=== PATIENT | male | born 1965 | race Caucasian/White ===

== ENCOUNTER 2016-12-08 08:03 | Inpatient (IN) ==
--- NOTE | 2016-12-05 14:47 | EKG Report ---
Stationary ECG Study [facility] Test Date: 12/05/2016 2:46:50 PM Pat Name: ELODIA RIVERA Department: Room: Gender: M Light Industrial Supervisor: RICHARD [birth year] : 1965 Requested by: Marcelo Davis Order Number: [id number] Reading MD: JOSE R CASILLAS Intervals [place] Rate: 66 P: 70 [place]: 181 QRS: 55 QRSD: 85 T: 1 QT: 379 QTc: 393 Interpretive Statements SINUS RHYTHM Electronically Signed On 12-05-16 19:42:28 BIRD KEEPER by JOSE R CASILLAS [email or web address]
--- NOTE | 2016-12-05 14:48 | XRay Report ---
XR chest 2V Indication: Respiratory preoperative evaluation Comparison: None available Findings: The heart and mediastinum are normal in size and configuration. The pulmonary vascularity is normal in caliber. No lung infiltrates, effusions, pneumothorax or other abnormality is demonstrated. Impression: Normal chest x-ray PROCEDURE INTERPRETED AT [facility] DEPARTMENT OF RADIOLOGY Final Report Signed by: Dr. Tony Meraz
[2016-12-05 15:29] LABS: Basophils % 0.5 % (0.0-0.8); Eosinophils # 0.3 10*3/uL (0.0-0.87); Eosinophils % 4.7 % (0.00-10.9); Hematocrit 43.6 VOL% (42.0-52.0); Hemoglobin 14.4 GM/DL (14.0-18.0); Immature Granulocytes % 0.2 %; Immature Granulocytes Absolute 0.01 #; Lymphocytes # 2.8 10*3/uL (1.4-4.0); Lymphocytes % 44.4 % (21.2-54.2); Mean Corpuscular Hemoglobin 29 PG (27-34); Mean Corpuscular Volume 87.7 FL (87-102); Mean Platelet Volume 9.5 FL (9.6-12.0); Monocytes # 0.5 10*3/uL (0.11-0.8); Monocytes % 8.3 % (1.7-12.7); Neutrophils # 2.7 10*3/uL (1.4-7.4); Neutrophils % 41.9 % (38.7-73.9); Platelet Count 253 T/CUMM (130-400); Red Blood Count 4.97 MC/CUMM (3.8-5.5); Red Cell Distribution Width 13.9 % (9.3-17.3); White Blood Count 6.4 T/CUMM (4-12)
[2016-12-05 16:06] LABS: Calcium 9.2 MG/DL (8.5-10.1); Osmolality,Calculated 285.8 MOS/KG (273-304); Potassium 4.4 MMOL/L (3.5-5.1)
[~2016-12-08 08:03] MED LIST: FAMOTIDINE 20 MG TABLET PO ONE; LORazepam 1 MG TABLET PO ONE
[2016-12-08] MEDS ORDERED: ROPIVACAINE 0.5% 30 ML VIAL ONE (08:32)
[2016-12-08] MEDS ORDERED: ceFAZolin 1,000 MG VIAL ONE (09:33)
[2016-12-08] MEDS ORDERED: LORazepam 1 MG TABLET ONE (09:33)
[2016-12-08] MEDS ORDERED: FAMOTIDINE 20 MG TABLET ONE (09:33)
[2016-12-08] MEDS ORDERED: SODIUM CHLORIDE 0.9% 100 ML IV ONE (09:34)
[2016-12-08] MEDS: LACTATED RINGERS 1,000 ML IV SCH ×3 (09:44→20:27)
[2016-12-08] MEDS ORDERED: BACITRACIN OINT 0.9 GM PACK TOP ONE (09:52)
[2016-12-08] MEDS ORDERED: BUPIVACAINE 0.5% 50 ML VIAL ONE (09:52)
[2016-12-08] MEDS ORDERED: GLYCOPYRROLATE 0.4 MG/2 ML VIAL ONE (11:30)
[2016-12-08] MEDS ORDERED: NEOSTIGMINE 10 MG/10 ML VIAL ONE (11:30)
[2016-12-08] MEDS ORDERED: ROCURONIUM 100 MG/10 ML VIAL IV ONE (11:30)
[2016-12-08] MEDS ORDERED: LIDOCAINE 2% 5 ML VIAL ONE (11:30)
[2016-12-08] MEDS ORDERED: KETOROLAC 30 MG/1 ML VIAL ONE (11:30)
--- NOTE | 2016-12-08 12:26 | History and Physical Update ---
History and Physical Update - History and Physical H&P was reviewed, the patient examined and there: are no changes in the patients condition since last H&P was completed.
--- NOTE | 2016-12-08 12:33 | Operative Note ---
Procedure: DIAGNOSIS: Left proximal humerus nonunion PROCEDURE: Repair left proximal humerus nonunion. Left anterior iliac crest bone grafting. SURGEON: Hesham ANESTHESIA: General with interscalene block PROCEDURE and FINDINGS: After adequate anesthesia was induced, the patient's left anterior iliac crest was prepped and draped in the usual sterile fashion. Skin was incised. Using sharp and blunt dissection, the superior table was identified and exposed subperiosteally. A cortical window was created with osteotomes. Cancellus bone was harvested and reserved. The wound was irrigated. 0 Vicryl was used to close the deep layers. 3-0 Vicryl was used to close subcutaneous tissue. A 4-0 Monocryl subcuticular stitch was used to close skin. Mastisol and Steri-Strips were applied. A sterile dressing was applied. The patient was then repositioned in a beachchair position. His left upper extremity was prepped and draped in usual sterile fashion. His previous incision was utilized. A deltopectoral interval was identified. The patient had dense adhesions and scar tissue. The long head of the biceps tendon was identified and the area lateral to the biceps tendon was exposed. The nonunion site was identified. Fibrous tissue was resected from the nonunion site. Bony surfaces were exposed. Anaerobic and aerobic cultures were obtained from the site and sent as a tissue specimen. No purulent or grossly infected tissue was identified. A Synthes proximal humerus locking plate 3-hole was applied. 5 locking screws were placed proximally. Three cortical screws were placed distally and loaded in compression. Image intensification was used in multiple planes. Harvested bone graft was packed into the nonunion site. The wound was copiously irrigated. The deltopectoral interval was closed with 0 Vicryl figure -of-eight suture. Subcutaneous tissue was closed with 3-0 Vicryl interrupted, buried suture. Skin was closed with nicolas. Sterile dressing and bacitracin were applied. A sling was placed. The patient was extubated and transferred recovery room in stable condition. Surgeon / Physician: Marcelo Dahl Jr. Results - Labs CBC & BMP: 12/05/16 15:23 12/05/16 15:23 Discharge Plan - Discharge Medications No Action Omeprazole Magnesium [Prilosec Otc] 40 mg PO DAILY - Follow Up or Referral - Forms/Instructions
[2016-12-08] MEDS ORDERED: ONDANSETRON 4 MG/2 ML VIAL IV PRN (12:34)
[2016-12-08] MEDS ORDERED: oxyCODONE/ACETAMINOPHEN 5-325 MG TABLET PO PRN (12:34)
[2016-12-08] MEDS ORDERED: PROMETHAZINE 25 MG/1 ML VIAL IM PRN (12:34)
[2016-12-08] MEDS ORDERED: ACETAMINOPHEN 325 MG TABLET PO PRN (12:34)
[2016-12-08] MEDS ORDERED: KETOROLAC 30 MG/1 ML VIAL IV PRN (12:34)
[2016-12-08] MEDS ORDERED: MAGNESIUM HYDROXIDE SUSP 30 ML UDCUP PO PRN ×2 (12:34→15:44)
[2016-12-08] MEDS ORDERED: MORPHINE 2 MG/1 ML SYRINGE IV PRN ×3 (12:34→15:44)
--- NOTE | 2016-12-08 14:47 | Discharge Summary ---
Hospital Course - Hospital Course Hospital Course: Mr Urena was admitted after undergoing repair of a left proximal humerus nonunion with left anterior iliac crest bone grafting. He received Ancef perioperatively. DVT prophylaxis was obtained with SCDs and REGGIE fraire. He was discharged home in stable condition. Mr Urena's laboratory work demonstrated Vitamin D deficiency. He was started on Caltrate D. His cultures showed no growth. Specialty Discharge - Follow Up or Referrals Follow up with: Marcelo Dahl Jr., MD [Physician] - (10-14 days ) Discharge Plan - Discharge Data Disposition: Disch To Home/Self Care Condition at Discharge: Stable Discharge Diet: advance to your usual diet Activity: no lifting Hygiene: may shower (in 48 hours) Weight Bearing at Discharge: non-weight bearing Driving: not until seen by doctor - Discharge Medications No Action Omeprazole Magnesium [Prilosec Otc] 40 mg PO DAILY - Follow Up or Referral Follow Up: Marcelo Dahl Jr., MD [Physician] - (10-14 days ) - Forms/Instructions Additional Discharge Instructions: Follow-up appointment in 10-14 days. Pendulums 3 times daily. Start daily dry dressing changes in 48 hours. Leave Steri-Strips on left iliac crest incision. Sling to left upper extremity. Prescription for [place] 7.5 and Keflex was written. Polar pad to left upper extremity. No nicotine or nonsteroidal anti-inflammatory agents. Take caltrate D two tablets daily. Exam - Constitutional Vitals: Period Temp Pulse Resp BP Sys/Das Pulse Ox Last 24 Hr 98.5 F 72 20 129/91 97 Discharge Results Procedures and tests throughout hospitalization: Pending Orders 12/08/16 XR shoulder 2V LT Routine 12/08/16 13:04 Tissue (Biopsy) Culture and GS Routine 12/09/16 04:00 Basic Metabolic Panel IN AM Comp Blood Count Auto Diff IN AM 12/10/16 04:00 Comp Blood Count Auto Diff IN AM 12/11/16 04:00 Comp Blood Count Auto Diff IN AM DS: Provider Primary care physician: . No PCP Discharging clinician: Marcelo Dahl Jr.,
--- NOTE | 2016-12-08 14:49 | XRay Report ---
Exam: XR shoulder 2V LT Date: 12/08/2016 12:00 AM Comparison: 08/15/2016, 08/16/2016 Indication: Nonunion left shoulder, iliac bone graft Technique:[Fluoroscopy time 50.3 seconds documented. Findings: Insertion of a metallic compression plate in the lateral proximal left humerus with multiple screws. Persistent displaced fracture with nonunion and callus formation/periosteal thickening.] Impression: Interval internal fixation of the fracture on the proximal left humerus. PROCEDURE INTERPRETED AT [facility] DEPARTMENT OF RADIOLOGY Final Report Signed by: Dr. Yana Raman
[2016-12-08] MEDS ORDERED: MIDAZOLAM 2 MG/2 ML VIAL ONE (14:51)
[2016-12-08] MEDS ORDERED: fentaNYL 100 MCG/2 ML VIAL ONE (14:51)
[2016-12-08] MEDS ORDERED: LACTATED RINGERS 1,000 ML IV ONE (14:51)
[2016-12-08] MEDS ORDERED: SEVOFLURANE 1 UNIT/15 MINUTE INH ONE (14:51)
[2016-12-08] MEDS: MORPHINE 2 MG/1 ML SYRINGE IV PRN (22:10)
[2016-12-09] MEDS: MORPHINE 2 MG/1 ML SYRINGE IV PRN (03:57)
[2016-12-09 05:32] LABS: Basophils % 0.2 % (0.0-0.8); Eosinophils # 0.2 10*3/uL (0.0-0.87); Eosinophils % 2.5 % (0.00-10.9); Hemoglobin 11.9 GM/DL (14.0-18.0); Immature Granulocytes % 0.2 %; Immature Granulocytes Absolute 0.01 #; Lymphocytes # 1.8 10*3/uL (1.4-4.0); Lymphocytes % 30.2 % (21.2-54.2); Mean Corpuscular HGB Conc 33.1 GM/DL (32-36); Mean Corpuscular Hemoglobin 29 PG (27-34); Mean Corpuscular Volume 87.8 FL (87-102); Mean Platelet Volume 9.8 FL (9.6-12.0); Monocytes # 0.6 10*3/uL (0.11-0.8); Monocytes % 9.5 % (1.7-12.7); Neutrophils # 3.4 10*3/uL (1.4-7.4); Neutrophils % 57.4 % (38.7-73.9); Platelet Count 198 T/CUMM (130-400); Red Cell Distribution Width 14.1 % (9.3-17.3); White Blood Count 5.9 T/CUMM (4-12)
[2016-12-09 06:02] LABS: Calcium 7.8 MG/DL (8.5-10.1); Osmolality,Calculated 288.6 MOS/KG (273-304); Potassium 4.2 MMOL/L (3.5-5.1)
[2016-12-09] MEDS: oxyCODONE/ACETAMINOPHEN 5-325 MG TABLET PO PRN ×3 (08:47→21:28)
[2016-12-09] MEDS: PANTOPRAZOLE 40 MG TABLET PO SCH (08:48)
[2016-12-09] MEDS ORDERED: NON-FORMULARY MEDICATION (Omeprazole Magnesium [Prilosec Otc] 40 MG) PO SCH (09:00)
--- NOTE | 2016-12-09 09:04 | Orthopedic Progress Note ---
Assessment and Plan (1) Fracture of proximal humerus Status: Acute Assessment and plan: POD #1 ORIF left shoulder non-union with left iliac crest bone graft. Cont care: Pain control, PT, oksana-op abx, d/c planning for today or tomorrow Current Visit: No Qualifiers: Encounter type: initial encounter Fracture type: closed Fracture alignment: displaced Laterality: left Orthopedics - Subjective Interval history: pt s/e. C/o pain to this left shoulder. better with po pain meds. Would like to consider waiting on d/c until tomorrow. Exam - Constitutional Vitals: Period Temp Pulse Resp BP Sys/Das Pulse Ox Last 24 Hr 97.2 F-98.1 F 69-88 16-21 94-141/55-98 95-100 General appearance: normal weight, no acute distress - Expanded Left Upper Extremity General: Present: normal inspection Shoulder exam: Present: normal inspection (dressing c/d/i) Elbow exam: Present: full ROM (good arom flexion and extension) Forearm wrist exam: Present: normal inspection, full ROM Hand wrist exam: Present: normal inspection, full ROM Neuro motor exam: Present: fingers 2-5 abduction intact, thumb adduction intact , thumb IP flexion intact, thumb opposition intact, wrist extension intact Neurosensory exam: Present: median nerve intact, radial nerve intact, ulnar nerve intact Vascular: Present: normal capillary refill - Expanded Left Lower Hip exam: Present: normal inspection (Dressing c/d/i) Ankle exam: Present: normal inspection, full ROM Foot/Toe exam: Present: normal inspection, full ROM Results - Labs CBC & BMP: 12/09/16 04:31 12/09/16 04:31 - Diagnostic Findings Procedure: X-ray: image reviewed by me, report reviewed by me Specialty Discharge - Follow Up or Referrals Follow up with: Marcelo Dahl Jr., MD [Physician] - (10-14 days )
--- NOTE | 2016-12-09 12:19 | Anesthesia ---
Anesthesia Post OP - Post Ansesthetic Evaluation Patient seen in post op: Yes Resp: within normal limits CV: within normal limits Mental: within normal limits Temp: within normal limits [id number]: within normal limits Nausea and Vomiting: within normal limits Pain: within normal limits
[2016-12-09] MEDS: LACTATED RINGERS 1,000 ML IV SCH (21:29)
[2016-12-10] MEDS: oxyCODONE/ACETAMINOPHEN 5-325 MG TABLET PO PRN ×5 (02:31→23:13)
[2016-12-10 04:45] LABS: Basophils % 0.2 % (0.0-0.8); Eosinophils # 0.2 10*3/uL (0.0-0.87); Eosinophils % 3.8 % (0.00-10.9); Hematocrit 32.4 VOL% (42.0-52.0); Hemoglobin 10.8 GM/DL (14.0-18.0); Lymphocytes # 1.5 10*3/uL (1.4-4.0); Lymphocytes % 29.4 % (21.2-54.2); Mean Corpuscular HGB Conc 33.3 GM/DL (32-36); Mean Corpuscular Hemoglobin 29 PG (27-34); Mean Corpuscular Volume 87.8 FL (87-102); Mean Platelet Volume 9.5 FL (9.6-12.0); Monocytes # 0.6 10*3/uL (0.11-0.8); Monocytes % 11.7 % (1.7-12.7); Neutrophils # 2.7 10*3/uL (1.4-7.4); Neutrophils % 54.9 % (38.7-73.9); Platelet Count 172 T/CUMM (130-400); Red Blood Count 3.69 MC/CUMM (3.8-5.5); Red Cell Distribution Width 13.8 % (9.3-17.3)
[2016-12-10] MEDS: LACTATED RINGERS 1,000 ML IV SCH ×2 (05:01→15:55)
[2016-12-10] MEDS: PANTOPRAZOLE 40 MG TABLET PO SCH (08:39)
--- NOTE | 2016-12-10 08:51 | Orthopedic Progress Note ---
Assessment and Plan (1) Fracture of proximal humerus Status: Acute Assessment and plan: POD #1 ORIF left shoulder non-union with left iliac crest bone graft. 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 ok d/c to home tomorrow Current Visit: No Qualifiers: Encounter type: initial encounter Fracture type: closed Fracture alignment: displaced Laterality: left Orthopedics - Subjective Interval history: pt s/e. States he feels much better today, but does not feel comfortable with going home today because he lives by himself and does not feel safe being able to take care of himself at this time. Requesting d/c tomorrow Exam - Constitutional Vitals: Period Temp Pulse Resp BP Sys/Das Pulse Ox Last 24 Hr 98.0 F-98.9 F 84-105 6-20 105-121/59-79 95-97 - Expanded Left Upper Extremity General: Present: normal inspection (Sling in place, dressing c/d/i. full AROm fingers, wrist elbow. comp soft, sensation intact. pulses 2+) - Expanded Left Lower Hip exam: Present: normal inspection (Dressing c/d/i, full AROm toes, ankle, calf soft & supple, cap refill brisk. sensation intact) Results - Labs CBC & BMP: 12/10/16 04:29 12/09/16 04:31 Lab Results: I have reviewed the past 24 hour labs Specialty Discharge - Follow Up or Referrals Follow up with: Marcelo Dahl Jr., MD [Physician] - (10-14 days )
[2016-12-10] MEDS: CALCIUM (CARBONATE)/VITAMIN D 600 MG-400 UNIT TABLET PO SCH ×2 (10:20→22:08)
[2016-12-11] MEDS: LACTATED RINGERS 1,000 ML IV SCH (01:33)
[2016-12-11 05:26] LABS: Basophils % 0.4 % (0.0-0.8); Eosinophils # 0.3 10*3/uL (0.0-0.87); Eosinophils % 5.4 % (0.00-10.9); Hemoglobin 11.4 GM/DL (14.0-18.0); Immature Granulocytes % 0.2 %; Immature Granulocytes Absolute 0.01 #; Lymphocytes # 1.6 10*3/uL (1.4-4.0); Lymphocytes % 31.2 % (21.2-54.2); Mean Corpuscular HGB Conc 33.5 GM/DL (32-36); Mean Corpuscular Hemoglobin 29 PG (27-34); Mean Corpuscular Volume 87.2 FL (87-102); Mean Platelet Volume 9.6 FL (9.6-12.0); Monocytes # 0.5 10*3/uL (0.11-0.8); Monocytes % 9.8 % (1.7-12.7); Neutrophils # 2.8 10*3/uL (1.4-7.4); Platelet Count 189 T/CUMM (130-400); Red Cell Distribution Width 13.9 % (9.3-17.3); White Blood Count 5.2 T/CUMM (4-12)
[2016-12-11] MEDS: oxyCODONE/ACETAMINOPHEN 5-325 MG TABLET PO PRN ×2 (05:51→10:16)
[2016-12-11 08:42] VITALS: BP 120/71
[2016-12-11] MEDS: CALCIUM (CARBONATE)/VITAMIN D 600 MG-400 UNIT TABLET PO SCH (10:16)
[2016-12-11] MEDS: PANTOPRAZOLE 40 MG TABLET PO SCH (10:16)
== END 2016-12-11 11:40 | disposition home or self-care (01) | DRG 494 ==
LOC: N.OR 08:03 → N.SDSINP 08:03 → EDSTATUS 08:15 → N.3E 12:35
PROVIDERS: ADMIT Orthopaedic Surgery; ATTEND Orthopaedic Surgery